=== PATIENT | female | born 1990 | race Caucasian/White ===

== ENCOUNTER 2019-01-10 14:50 | Emergency (ER) | payer SELFPAY ==
[~2019-01-10] VITALS: Ht 152.4 cm; Wt 59.0 kg
[2019-01-10 15:04] VITALS: BP 108/83
[2019-01-10] MEDS ORDERED: AMOX1TAB61 PO (15:09)
--- NOTE | 2019-01-10 15:16 | PHYS DOC ---
Adult General Chief Complaint Chief Complaint: ANIMAL BITE HPI HPI Patient is a 28 year old female who presents with was a stray cat under her [place] and it had kittens in today at noon she tried to get the mom a cat out and the cat bit her and scratched her arm. Patient rates her pain a 9 out of 10. Patient cleaned areas with peroxide. Patient states she is not sure if she is up-to-date on tetanus. Patient states she did call animal control. Review of Systems Review of Systems Constitutional: Denies fever or chills [] Eyes: Denies change in visual acuity, redness, or eye pain [] HENT: Denies nasal congestion or sore throat [] Respiratory: Denies cough or shortness of breath [] Cardiovascular: No additional information not addressed in HPI [] GI: Denies abdominal pain, nausea, vomiting, bloody stools or diarrhea [] : Denies dysuria or hematuria [] Musculoskeletal: Denies back pain or joint pain [] Integument: puncture bite wound to left index and right middle finger. Scratches to Left forearm. Denies rash or skin lesions [] Neurologic: Denies headache, focal weakness or sensory changes [] Endocrine: Denies polyuria or polydipsia [] All other systems were reviewed and found to be within normal limits, except as documented in this note. Physical Exam Physical Exam Constitutional: Well developed, well nourished, no acute distress, non-toxic appearance. [] HENT: Normocephalic, atraumatic, bilateral external ears normal, oropharynx moist, no oral exudates, nose normal. [] Eyes: PERRLA, EOMI, conjunctiva normal, no discharge. [] Neck: Normal range of motion, no tenderness, supple, no stridor. [] Cardiovascular:Heart rate regular rhythm, no murmur [] Lungs & Thorax: Bilateral breath sounds clear to auscultation [] Abdomen: Bowel sounds normal, soft, no tenderness, no masses, no pulsatile masses. [] Skin: Tooth puncture wound to Left index anteroir and dorsal. Left forearm scratches. Right tip middle finger dorsal tooth puncture wound. Warm, dry, no erythema, no rash. [] Back: No tenderness, no CVA tenderness. [] Extremities: No tenderness, no cyanosis, no clubbing, ROM intact, no edema. [] Neurologic: Alert and oriented X 3, normal motor function, normal sensory function, no focal deficits noted. [] Psychologic: Affect normal, judgement normal, mood normal. [] EKG EKG [] Radiology/Procedures Radiology/Procedures [] Course & Med Decision Making Course & Med Decision Making Patient is a 28 year old female who presents with was a stray cat under her [place] and it had kittens in today at noon she tried to get the mom a cat out and the cat bit her and scratched her arm. Patient rates her pain a 9 out of 10. Patient cleaned areas with peroxide. Patient states she is not sure if she is up-to-date on tetanus. Patient states she did call animal control. Her oriented. Skin pink warm and dry. Vital signs within normal limits. Patient has a puncture bite on her left index tip of finger that did go through the nail and 3 more punctures down the anterior index finger and a puncture ada the dorsal tip of her finger. Patient has a puncture wound to the dorsal tip of index finger without nailbed injury on anterior side. Patient has left forearm scratches. Slight swelling to left index tip of finger for the bite is located. No drainage from any wounds or scratches and no signs of infection at this time. Patient is to keep the areas clean and covered. Patient is given a Boostrix and a prescription for Augmentin. [place] Disclaimer Dragon Disclaimer This electronic medical record was generated, in whole or in part, using a voice recognition dictation system. Departure Departure Impression: Primary Impression: Cat bite Disposition: 01 HOME, SELF-CARE Condition: STABLE Patient Instructions: Animal Bite Additional Instructions: Keep areas clean and covered. Take medication as prescribed. Scripts Amoxicillin/Potassium Clav (AUGMENTIN 875-125 TABLET) 1 Each Tablet 1 TAB PO BID, #20 TAB Prov: NADIA PIERCE APRN 01/10/19 Problem Qualifiers Primary Impression: Cat bite Encounter type: initial encounter Qualified Codes: W55.01XA - Bitten by cat, initial encounter NADIA PIERCE APRN Jan 10, 2019 15:15
[2019-01-10] MEDS ORDERED: DIPHTH,PERTUSS(ACELL),TET TOX 0.5 ML DISP.SYRIN. VAX IM ONE (15:45)
== END 2019-01-10 15:25 | disposition home or self-care (01) ==
LOC: ER 14:50
DX: S61.231A Puncture wound without foreign body of left index finger without damage to nail, initial encounter (principal); S61.232A Puncture wound without foreign body of right middle finger without damage to nail, initial encounter; S50.812A Abrasion of left forearm, initial encounter; W55.01XA Bitten by cat, initial encounter; Y93.89 Activity, other specified; Y92.89 Other specified places as the place of occurrence of the external cause; Y99.8 Other external cause status
CPT/HCPCS: 90471; 90715; 99283